=== PATIENT | female | born 1940 | race African-American/Black ===

== ENCOUNTER 2017-08-11 09:12 | Emergency (ER) | payer MEDICARE, MEDICAID ==
[~2017-08-11] VITALS: Ht 170.2 cm; Wt 61.7 kg
[~2017-08-11 09:12] MED LIST: ASPI81CH49; VER180ST
[2017-08-11 09:20] VITALS: BP 185/100
[2017-08-11] MEDS ORDERED: ACETAMINOPHEN 325 MG TAB PO ONE (10:30)
== END 2017-08-11 10:39 | disposition home or self-care (01) ==
LOC: ER 09:12
DX: M16.11 Unilateral primary osteoarthritis, right hip (principal); M19.90 Unspecified osteoarthritis, unspecified site; J45.909 Unspecified asthma, uncomplicated; I10 Essential (primary) hypertension; Z88.0 Allergy status to penicillin; Z90.710 Acquired absence of both cervix and uterus; Z79.899 Other long term (current) drug therapy; Z76.0 Encounter for issue of repeat prescription
CPT/HCPCS: 73502

== ENCOUNTER 2018-05-02 11:46 | Emergency (ER) | payer MEDICARE, MEDICAID ==
[~2018-05-02] VITALS: Ht 172.7 cm; Wt 63.5 kg
[2018-05-02 15:03] LABS: Basophils # (auto) 0 uL; Basophils % (auto) 0.2 % (0.0-2.0); Eosinophils # (auto) 0 uL; Eosinophils % (auto) 0.3 % (0.0-7.0); Hematocrit 46.4 % (36.0-46.0); Hemoglobin 14.5 g/dL (12.2-16.2); Lymphocytes # (auto) 1.3 uL; Lymphocytes % (auto) 18.8 % (10.0-50.0); Mean Corpuscular Hemoglobin 29.2 pg (28.0-32.0); Mean Corpuscular Hgb Conc. 31.3 g/dL (32.0-36.0); Mean Corpuscular Volume 93.5 fL (80.0-100.0); Monocytes # (auto) 0.8 uL; Monocytes % (auto) 10.9 % (0.0-12.0); Neutrophils # (auto) 4.9 uL; Neutrophils % (auto) 69.8 % (37.0-80.0); Nucleated Red Blood Cells % 0.2 %; Platelet Count (auto) 186 10^3/uL (140-450); Red Blood Cells 4.96 10^6/uL (4.0-5.20); Red Cell Distribution Width 15.9 % (11.8-14.3)
[2018-05-02 15:17] LABS: Magnesium 3.2 mg/dL (1.6-2.6); Potassium 4.9 mmol/L (3.5-5.1)
[2018-05-02 15:21] LABS: BUN/Creatinine Ratio 36.4; Bilirubin, Total 0.6 mg/dL (0.2-1.0); Total Protein 7.8 g/dL (6.4-8.2)
[2018-05-02 23:06] LABS: Magnesium 3.1 mg/dL (1.6-2.6)
[2018-05-02 23:07] LABS: Partial Thromboplastin Time 20.3 sec (23.78-33.04); Prothrombin Time 10.7 sec (9.27-12.13)
[2018-05-03] MEDS ORDERED: IPRATROPIUM BROM 0.5 MG/2.5ML INH SOL NEB ONE
[2018-05-03] MEDS ORDERED: ALBUTEROL SULF 2.5 MG/0.5ML(0.5%) NEB SOLN NEB ONE
[2018-05-03 03:49] VITALS: BP 96/69
== END 2018-05-03 03:56 | disposition short-term general hospital (02) ==
LOC: EDBD 11:46 → ER 11:48
DX: R41.82 Altered mental status, unspecified (principal); M85.59 Aneurysmal bone cyst, multiple sites; I21.4 Non-ST elevation (NSTEMI) myocardial infarction; I12.9 Hypertensive chronic kidney disease with stage 1 through stage 4 chronic kidney disease, or unspecified chronic kidney disease; N18.9 Chronic kidney disease, unspecified; R79.1 Abnormal coagulation profile; R79.89 Other specified abnormal findings of blood chemistry; M19.90 Unspecified osteoarthritis, unspecified site; J45.909 Unspecified asthma, uncomplicated; Z86.73 Personal history of transient ischemic attack (TIA), and cerebral infarction without residual deficits; Z90.710 Acquired absence of both cervix and uterus
CPT/HCPCS: 36415; 36600; 70450; 71045; 80053; 82805; 83735; 83880; 84443; 84484; 85025; 85379; 85610; 85730; 93005; 94640; 99285; J7611; J7644